=== PATIENT | male | born 1960 | race Caucasian/White ===

== ENCOUNTER 2024-02-20 11:10 | Day surgery (SDC) | payer OTHER ==
[2024-02-14 14:18] VITALS: BMI 18.7
[2024-02-20] MEDS: CYCLOPENTOLATE 2% OPHTH SOLN 2 ML BOTTLE ONE (12:25)
[2024-02-20] MEDS: TROPICAMIDE 1% OPHTH SOLN 15 ML BOTTLE ONE (12:25)
[2024-02-20] MEDS: CIPROFLOXACIN 0.3% EYE DROPS 5 ML BOTTLE ONE (12:25)
[2024-02-20] MEDS: PHENYLEPHRINE 2.5% OPTHALMIC DROP 2ML BOTTLE ONE (12:25)
[2024-02-20] MEDS ORDERED: MIDAZOLAM HCL 2 MG/2 ML SINGLE DOSE VIAL ONE ×2 (12:30→14:03)
[2024-02-20] MEDS ORDERED: NEO/POLYMYX B SULF/DEXAMETH OPHTHALMIC 5ML BOTTLE ONE (12:49)
[2024-02-20] MEDS ORDERED: TETRACAINE 0.5% OPHTH SOLN 2 ML BOTTLE ONE (12:49)
[2024-02-20] MEDS ORDERED: CARBACHOL 0.01% INTRA-OCULAR 1.5 ML VIAL ONE (12:49)
[2024-02-20] MEDS ORDERED: BSS (NA/CA/MG/K) BALANCED SALT SOLUTION OPHTH SOLN 15 ML BOTTLE ONE (12:49)
[2024-02-20] MEDS ORDERED: EPINEPHrine/PF 1 MG/1 ML (1:1,000) AMPULE ONE (12:49)
[2024-02-20] MEDS ORDERED: LIDOCAINE 1% P/F 10 MG/ML VIAL ONE (12:49)
[2024-02-20] MEDS ORDERED: TRYPAN BLUE 0.5 ML DISP.SYRIN ONE (13:44)
[2024-02-20 14:27] VITALS: RESP 18; TEMP 97.6
[2024-02-20 14:53] VITALS: BP 121/68; PULSE 66
== END 2024-02-20 15:05 | disposition home or self-care (01) ==
LOC: FASU 11:10
PROVIDERS: ATTEND Ophthalmology
PROC: 08ND3ZZ Release Left Iris, Percutaneous Approach (ICD-10-PCS; 2024-02-20)
PROC: 08RK3JZ Replacement of Left Lens with Synthetic Substitute, Percutaneous Approach (ICD-10-PCS; principal; 2024-02-20 14:04)
DX: H26.8 Other specified cataract (principal); H21.542 Posterior synechiae (iris), left eye
CPT/HCPCS: 66984; V2632

== ENCOUNTER 2024-04-16 07:05 | Day surgery (SDC) | payer OTHER ==
[2024-04-16] MEDS ORDERED: TETRACAINE 0.5% OPHTH SOLN 2 ML BOTTLE ONE (07:29)
[2024-04-16] MEDS ORDERED: BSS (NA/CA/MG/K) BALANCED SALT SOLUTION OPHTH SOLN 15 ML BOTTLE ONE (07:29)
[2024-04-16] MEDS ORDERED: LIDOCAINE 1% P/F 10 MG/ML VIAL ONE (07:29)
[2024-04-16] MEDS ORDERED: EPINEPHrine/PF 1 MG/1 ML (1:1,000) AMPULE ONE (07:29)
[2024-04-16] MEDS ORDERED: NEO/POLYMYX B SULF/DEXAMETH OPHTHALMIC 5ML BOTTLE ONE (07:30)
[2024-04-16] MEDS ORDERED: CARBACHOL 0.01% INTRA-OCULAR 1.5 ML VIAL ONE (07:30)
[2024-04-16 07:37] VITALS: BMI 18.7
[2024-04-16] MEDS: TROPICAMIDE 1% OPHTH SOLN 15 ML BOTTLE ONE (07:40)
[2024-04-16] MEDS: PHENYLEPHRINE 2.5% OPTHALMIC DROP 2ML BOTTLE ONE (07:40)
[2024-04-16] MEDS: CIPROFLOXACIN 0.3% EYE DROPS 5 ML BOTTLE ONE (07:40)
[2024-04-16] MEDS: CYCLOPENTOLATE 2% OPHTH SOLN 2 ML BOTTLE ONE (07:40)
[2024-04-16] MEDS ORDERED: MIDAZOLAM HCL 2 MG/2 ML SINGLE DOSE VIAL ONE (08:25)
[2024-04-16 09:28] VITALS: RESP 18; TEMP 97.3
[2024-04-16 09:40] VITALS: BP 110/74; PULSE 66
== END 2024-04-16 09:45 | disposition home or self-care (01) ==
LOC: FASU 07:05
PROVIDERS: ATTEND Ophthalmology
PROC: 08RJ3JZ Replacement of Right Lens with Synthetic Substitute, Percutaneous Approach (ICD-10-PCS; principal; 2024-04-16 08:56)
DX: H26.8 Other specified cataract (principal)
CPT/HCPCS: 66984; V2632